=== PATIENT | female | born 1965 | race Caucasian/White ===

== ENCOUNTER 2017-06-25 03:22 | Inpatient (IN) | payer OTHER ==
[~2017-06-25 03:22] MED LIST: BUPR100CR PO; LISI20TA PO; NAPR250T4 PO; OMEP20TA93 PO
[2017-06-25] MEDS ORDERED: NALOXONE HCL 0.4 MG/ML AMP IV PUSH PRN (03:30)
[2017-06-25] MEDS ORDERED: SODIUM CHLORIDE 0.9% FLUSH 10 ML FLUSH IV FLUSH PRN (03:30)
[2017-06-25 10:07] VITALS: BP 136/80; PULSE 68; RESP 20; TEMP 98.5; O2SAT 97
[2017-06-25] MEDS: metroNIDAZOLE 500 MG INJ 100 ML IV SCH ×2 (10:28→18:05)
[2017-06-25] MEDS: SODIUM CHLOR 0.9% 1000 ML INJ 1,000 ML IV SCH ×3 (10:28→23:19)
[2017-06-25] MEDS: SODIUM CHLORIDE 0.9% FLUSH 10 ML FLUSH IV FLUSH SCH ×2 (10:29→21:45)
[2017-06-25] MEDS: MORPHINE SULFATE 4 MG/ML INJ IV PUSH PRN ×2 (10:30→17:15)
[2017-06-25] MEDS: ONDANSETRON HCL 4 MG/2 ML VIAL IVP PRN ×2 (10:38→17:15)
[2017-06-25 11:37] VITALS: BP 128/72; PULSE 71; RESP 20; TEMP 97.6; O2SAT 96
[2017-06-25] MEDS: MAGNESIUM SULFATE 1 GM PREMIX 100 ML IV SCH ×2 (14:25→15:20)
[2017-06-25] MEDS: HEPARIN SODIUM - SQ 10,000 UNITS/ML VIAL SQ SCH ×2 (14:25→21:45)
[2017-06-25 16:14] VITALS: BP 119/71; PULSE 66; RESP 20; TEMP 98.4; O2SAT 96
[2017-06-25] MEDS: CIPROFLOXACIN 400 MG PREMIX 200 ML IV SCH (16:16)
[2017-06-25 16:39] VITALS: PULSE 72
--- NOTE | 2017-06-25 18:36 | HHI.HP ---
[facility] No Primary Care Physician Admission Diagnosis Diagnoses: (1) Diverticulitis large intestine Chief Complaint: Abdominal pain Travel History International Travel<30 Days: No Contact w/Intl Traveler <30 Da: No Traveled to Known Affected Are: No History of Present Illness 51-year-old female with a history of hypertension, prior history of diverticulitis presented to the ED last night for evaluation of 2 day history of abdominal pain mostly located to the right lower quadrant rated 8/10 in intensity without any associated nausea and vomiting. The pain is described as cramping and dull. CT abdomen and ED revealed acute diverticulitis. Patient reports a prior history of diverticulitis about 2 years ago. At that time she was hospitalized for 4 days and was treated with IV antibiotics. Currently during my exam, patient reported nausea without any emesis. She denies any shortness of breath or chest pain. She has no GI bleed. Review of Systems Except as stated in HPI: all other systems reviewed are Neg Past Family Social History Past Medical History Hypertension GERD Past Surgical History Hysterectomy Appendectomy Reported Medications Wellbutrin SR 12 HR (Bupropion HCl) 100 Mg Tab 100 Mg PO Q12HR Omeprazole 20 Mg Tab 20 Mg PO DAILY Lisinopril-Hctz 20-12.5 Mg Tab 1 Tab PO DAILY Naproxen 250 Mg Tab 250 Mg PO BID Allergies: Coded Allergies: No Known Allergies (Unverified , 06/25/17) Family History Family history positive for lung cancer Social History Alcohol Use: No Tobacco Use: Yes Substance Use: No Physical Exam Vital Signs Vital Signs Date Time Temp Pulse Resp B/P (MAP) Pulse Ox O2 Delivery O2 Flow Rate FiO2 06/25/17 16:39 72 06/25/17 16:14 98.4 66 20 119/71 (87) 96 06/25/17 11:37 97.6 71 20 128/72 (90) 96 06/25/17 10:07 98.5 68 20 136/80 (98) 97 Physical Exam GENERAL: This is a well-nourished, well-developed patient, in no apparent distress. SKIN: No rashes, ecchymoses or lesions. Cool and dry. HEAD: Atraumatic. Normocephalic. No temporal or scalp tenderness. EYES: Pupils equal round and reactive. Extraocular motions intact. No scleral icterus. No injection or drainage. ENT: Nose without bleeding, purulent drainage or septal hematoma. Throat without erythema, tonsillar hypertrophy or exudate. Uvula midline. Airway patent. NECK: Trachea midline. No JVD or lymphadenopathy. Supple, nontender, no meningeal signs. CARDIOVASCULAR: Regular rate and rhythm without murmurs, gallops, or rubs. RESPIRATORY: Clear to auscultation. Breath sounds equal bilaterally. No wheezes , rales, or rhonchi. GASTROINTESTINAL: Abdomen soft, mildly tender, nondistended. No hepato- splenomegaly, or palpable masses. No guarding. MUSCULOSKELETAL: Extremities without clubbing, cyanosis, or edema. No joint tenderness, effusion, or edema noted. No calf tenderness. Negative Homans sign bilaterally. NEUROLOGICAL: Awake and alert. Cranial nerves II through XII intact. Motor and sensory grossly within normal limits. Five out of 5 muscle strength in all muscle groups. Normal speech. Septic Shock Reassessment Septic shock perfusion: reassessment completed Caprini VTE Risk Assessment Caprini VTE Risk Assessment: No/Low Risk (score <= 1) Caprini Risk Assessment Model Point Value = 1 Point Value = 2 Point Value = 3 Point Value = 5 Age 41-60 Minor surgery BMI > 25 kg/m2 Swollen legs Varicose veins or History of unexplained or recurrent spontaneous Oral contraceptives or hormone replacement Sepsis (< 1 month) Serious lung disease, including pneumonia (< 1 month) Abnormal pulmonary function Acute myocardial infarction Congestive heart failure (< 1 month) History of inflammatory bowel disease Medical patient at bed rest Age 61-74 Arthroscopic surgery Major open surgery (> 45 min) Laparoscopic surgery (> 45 min) Malignancy Confined to bed (> 72 hours) Immobilizing plaster cast Central venous access Age >= 75 History of VTE Family history of VTE Factor V Leiden Prothrombin [id number] Lupus anticoagulant Anticardiolipin antibodies Elevated serum homocysteine Heparin-induced thrombocytopenia Other congenital or acquired thrombophilia Stroke (< 1 month) Elective arthroplasty Hip, pelvis, or leg fracture Acute spinal cord injury (< 1 month) Prophylaxis Regimen Total Risk Factor Score Risk Level Prophylaxis Regimen 0-1 Low Early ambulation 2 Moderate Order ONE of the following: *Sequential Compression Device (SCD) *Heparin 5000 units SQ BID 3-4 Higher Order ONE of the following medications: *Heparin 5000 units SQ TID *Enoxaparin/Lovenox 40 mg SQ daily (WT < 150 kg, CrCl > 30 mL/min) *Enoxaparin/Lovenox 30 mg SQ daily (WT < 150 kg, CrCl > 10-29 mL/min) *Enoxaparin/Lovenox 30 mg SQ BID (WT < 150 kg, CrCl > 30 mL/min) AND/OR *Sequential Compression Device (SCD) 5 or more Highest Order ONE of the following medications: *Heparin 5000 units SQ TID (Preferred with Epidurals) *Enoxaparin/Lovenox 40 mg SQ daily (WT < 150 kg, CrCl > 30 mL/min) *Enoxaparin/Lovenox 30 mg SQ daily (WT < 150 kg, CrCl > 10-29 mL/min) *Enoxaparin/Lovenox 30 mg SQ BID (WT < 150 kg, CrCl > 30 mL/min) AND *Sequential Compression Device (SCD) Assessment and Plan Problem List: (1) Diverticulitis large intestine ICD Code: K57.32 - Diverticulitis of large intestine without perforation or abscess without bleeding Assessment and Plan 51-year-old female with Acute diverticulitis of large intestine CT abdomen noted and reviewed by me with finding of acute diverticulitis Currently on Flagyl and Cipro Continue with nothing by mouth, IV fluid resuscitation and parenteral pain management Patient is requesting no narcotics Leukocytosis Above infectious process Continue with current IV antibiotics Monitor CBC Hypertension Resume outpatient medications History of tobacco abuse Tobacco cessation counselling Continue with Wellbutrin DVT prophylaxis: Bilateral SCDs GI prophylaxis: PPI Code Status Full code Discussed Condition With Patient Physician Certification 2 Midnight Certification Type: Admission for Inpatient Services Order for Inpatient Services The services are ordered in accordance with Medicare regulations or non- Medicare payer requirements, as applicable. In the case of services not specified as inpatient-only, they are appropriately provided as inpatient services in accordance with the 2-midnight benchmark. Estimated LOS (days): 2 days is the estimated time the patient will need to remain in the hospital, assuming treatment plan goals are met and no additional complications. Post-Hospital Plan: Not yet determined Min Castellano MD Jun 25, 2017 18:36
[2017-06-25] MEDS ORDERED: ACETAMINOPHEN 325 MG TAB PO PRN (18:45)
[2017-06-25] MEDS ORDERED: PANTOPRAZOLE SODIUM 40 MG VIAL IV PUSH SCH (19:00)
[2017-06-25] MEDS ORDERED: KETOROLAC TROMETHAMINE 30 MG/ML (IVP) VIAL IV PUSH PRN (19:00)
[2017-06-25 20:30] VITALS: BP 134/65; PULSE 90; RESP 16; TEMP 98; O2SAT 95
[2017-06-25] MEDS: TEMAZEPAM 15 MG CAP PO PRN (21:46)
[2017-06-25] MEDS: buPROPion HCL 100 MG SUSTAINED RELEASE TAB PO SCH (22:17)
[2017-06-25] MEDS: ONDANSETRON HCL 4 MG/2 ML VIAL IV PUSH PRN (23:19)
[2017-06-26] VITALS (9 sets, daily range): BP systolic 107–165; BP diastolic 53–86; PULSE 65–77; RESP 16–22; TEMP 97.5–98.6; O2SAT 73–97
[2017-06-26] MEDS: metroNIDAZOLE 500 MG INJ 100 ML IV SCH ×3 (02:00→17:35)
[2017-06-26] MEDS: CIPROFLOXACIN 400 MG PREMIX 200 ML IV SCH ×2 (02:00→14:11)
[2017-06-26] MEDS: HEPARIN SODIUM - SQ 10,000 UNITS/ML VIAL SQ SCH ×3 (05:13→20:51)
[2017-06-26] MEDS: KETOROLAC TROMETHAMINE 30 MG/ML (IVP) VIAL IV PUSH PRN ×3 (05:13→18:45)
[2017-06-26] MEDS: SODIUM CHLORIDE 0.9% FLUSH 10 ML FLUSH IV FLUSH SCH ×2 (08:45→20:51)
[2017-06-26] MEDS: HYDROCHLOROTHIAZIDE 12.5 MG CAP PO SCH (08:55)
[2017-06-26] MEDS: LISINOPRIL 20 MG TAB PO SCH (08:55)
[2017-06-26] MEDS: buPROPion HCL 100 MG SUSTAINED RELEASE TAB PO SCH ×2 (08:55→20:51)
[2017-06-26] MEDS: DOCUSATE SODIUM 50 MG/SENNA 8.6 MG TAB PO PRN ×2 (08:55→20:51)
[2017-06-26] MEDS: SODIUM CHLOR 0.9% 1000 ML INJ 1,000 ML IV SCH ×2 (08:58→20:51)
[2017-06-26] MEDS ORDERED: NON-FORMULARY DRUG (Lisinopril-Hctz 1 TAB) PO SCH (09:00)
[2017-06-26] MEDS ORDERED: PNEUMOCOCCAL POLYVALENT INJ 25 MCG/0.5 ML SYR IM ONE (10:00)
[2017-06-26] MEDS ORDERED: INFLUENZA VIRUS VACCINE (QUADRIVALENT) 0.5 ML SYR IM ONE (10:00)
[2017-06-26 10:23] LABS: AUTOMATED NEUTROPHIL # 9.4 TH/MM3 (1.8-7.7); BASOPHIL % 0.3 % (0.0-2.0); EOSINOPHIL # 0.1 TH/MM3 (0-0.4); EOSINOPHIL % 0.8 % (0.0-4.0); HEMATOCRIT 36.9 % (35.0-46.0); HEMOGLOBIN 12.4 GM/DL (11.6-15.3); LYMPH % 18.4 % (9.0-44.0); LYMPHOCYTE # 2.3 TH/MM3 (1.0-4.8); MEAN CELL VOLUME 91.4 FL (80.0-100.0); MEAN CORPUSCULAR HEMOGLOBIN 30.6 PG (27.0-34.0); MEAN CORPUSCULAR HGB CONC 33.5 % (32.0-36.0); MEAN PLATELET VOLUME 9.1 FL (7.0-11.0); MONO % 5.9 % (0.0-8.0); MONOCYTE # 0.8 TH/MM3 (0-0.9); NEUT % 74.6 % (16.0-70.0); PLATELET COUNT 256 TH/MM3 (150-450); RED BLOOD COUNT 4.03 MIL/MM3 (4.00-5.30); RED CELL DISTRIBUTION WIDTH 14.5 % (11.6-17.2); WHITE BLOOD COUNT 12.7 TH/MM3 (4.0-11.0)
[2017-06-26 10:52] LABS: CALCIUM 8.8 MG/DL (8.5-10.1); CREATININE 1.14 MG/DL (0.50-1.00)
--- NOTE | 2017-06-26 12:36 | HHI.PR ---
Subjective Remarks Patient reports she is feeling slightly better in terms of nausea. Still having some breakthrough pain. She is requesting medications for rectal pain. She is cognizant of her history of opiate abuse and states she would only use the medication if it is absolutely needed. Objective Vitals Vital Signs Date Time Temp Pulse Resp B/P (MAP) Pulse Ox O2 Delivery O2 Flow Rate FiO2 06/26/17 11:38 98.3 72 21 158/74 (102) 95 06/26/17 09:05 65 06/26/17 08:17 98.3 73 20 165/86 (112) 73 06/26/17 03:58 98.3 77 16 118/60 (79) 96 06/26/17 02:33 70 06/26/17 00:00 98.6 69 16 113/55 (74) 95 06/25/17 20:30 98.0 90 16 134/65 (88) 95 06/25/17 16:39 72 06/25/17 16:14 98.4 66 20 119/71 (87) 96 I/O 06/25/17 06/25/17 06/25/17 06/26/17 06/26/17 06/26/17 07:00 15:00 23:00 07:00 15:00 23:00 Intake Total 100 ml 1256 ml Balance 100 ml 1256 ml Intake IV Total 100 ml 1256 ml # Voids 3 Result Diagram: 06/26/17 0935 06/26/17 0935 Objective Remarks GENERAL: This is a well-nourished, well-developed patient, in no apparent distress. CARDIOVASCULAR: Normal rate and regular rhythm without murmurs, gallops, or rubs. RESPIRATORY: Good respiratory efforts. Breath sounds equal and clear to auscultation bilaterally. GASTROINTESTINAL: Abdomen soft, tender to palpation in the left lower quadrant. No rebound tenderness MUSCULOSKELETAL: Extremities without cyanosis, or edema. NEURO: Alert & Oriented x4 to person, place, time, situation. Moves all ext x4 PSYCH: Appropriate mood and affect. A/P Problem List: (1) Diverticulitis large intestine ICD Code: K57.32 - Diverticulitis of large intestine without perforation or abscess without bleeding Assessment and Plan 51-year-old female admitted with acute diverticulitis. Acute diverticulitis of large intestine CT abdomen noted as above with finding of acute diverticulitis Currently on IV Flagyl and Cipro Continue with nothing by mouth, IV fluid resuscitation and parenteral pain management Continue Toradol for pain management. Low dose IV morphine for severe/ breakthrough pain only. Patient reports history of opiate addiction and states she will avoid using opiates unless absolutely necessary. She does want to have it available just in case. Leukocytosis Above infectious process Continue with current IV antibiotics Monitor CBC Hypertension Continue outpatient medications History of tobacco abuse Tobacco cessation counselling Continue with Wellbutrin DVT prophylaxis: Bilateral SCDs GI prophylaxis: H2 diana Irena Cain MD Jun 26, 2017 12:36
[2017-06-26] MEDS ORDERED: MORPHINE SULFATE 2 MG/ML INJ IV PUSH PRN (12:45)
[2017-06-26] MEDS: FAMOTIDINE 20 MG TAB PO SCH (20:51)
[2017-06-26] MEDS: TEMAZEPAM 15 MG CAP PO PRN (20:54)
[2017-06-26] MEDS: ONDANSETRON HCL 4 MG/2 ML VIAL IV PUSH PRN (22:12)
[2017-06-27] MEDS: metroNIDAZOLE 500 MG INJ 100 ML IV SCH ×3 (03:19→17:41)
[2017-06-27] MEDS: CIPROFLOXACIN 400 MG PREMIX 200 ML IV SCH ×2 (03:19→15:01)
[2017-06-27 04:08] VITALS: BP 125/58; PULSE 65; RESP 19; TEMP 98.1; O2SAT 96
[2017-06-27] MEDS: ONDANSETRON HCL 4 MG/2 ML VIAL IV PUSH PRN ×2 (05:59→14:58)
[2017-06-27] MEDS: HEPARIN SODIUM - SQ 10,000 UNITS/ML VIAL SQ SCH ×3 (05:59→20:46)
[2017-06-27] MEDS: SODIUM CHLOR 0.9% 1000 ML INJ 1,000 ML IV SCH ×2 (05:59→15:03)
[2017-06-27 08:34] VITALS: BP 133/69; PULSE 69; RESP 20; TEMP 98; O2SAT 97
[2017-06-27] MEDS: SODIUM CHLORIDE 0.9% FLUSH 10 ML FLUSH IV FLUSH SCH ×2 (08:56→20:45)
[2017-06-27] MEDS: HYDROCHLOROTHIAZIDE 12.5 MG CAP PO SCH (08:57)
[2017-06-27] MEDS: buPROPion HCL 100 MG SUSTAINED RELEASE TAB PO SCH ×2 (08:57→20:45)
[2017-06-27] MEDS: FAMOTIDINE 20 MG TAB PO SCH ×2 (08:57→20:45)
[2017-06-27] MEDS: KETOROLAC TROMETHAMINE 30 MG/ML (IVP) VIAL IV PUSH PRN ×3 (08:58→22:22)
[2017-06-27] MEDS: LISINOPRIL 20 MG TAB PO SCH (08:58)
[2017-06-27] MEDS: DOCUSATE SODIUM 50 MG/SENNA 8.6 MG TAB PO PRN (10:33)
[2017-06-27 11:05] LABS: HEMATOCRIT 36.3 % (35.0-46.0); HEMOGLOBIN 12.4 GM/DL (11.6-15.3); MEAN CELL VOLUME 90.4 FL (80.0-100.0); MEAN CORPUSCULAR HEMOGLOBIN 30.8 PG (27.0-34.0); MEAN CORPUSCULAR HGB CONC 34.1 % (32.0-36.0); PLATELET COUNT 266 TH/MM3 (150-450); RED BLOOD COUNT 4.01 MIL/MM3 (4.00-5.30); RED CELL DISTRIBUTION WIDTH 14.4 % (11.6-17.2)
[2017-06-27 11:36] LABS: BICARBONATE 26.4 MEQ/L (21.0-32.0); CALCIUM 8.8 MG/DL (8.5-10.1); CREATININE 1.11 MG/DL (0.50-1.00)
[2017-06-27 12:00] VITALS: BP 152/75; PULSE 69; RESP 20; TEMP 98.6; O2SAT 97
--- NOTE | 2017-06-27 13:16 | HHI.PR ---
Subjective Remarks Patient reports she is feeling better today. She is having much less pain. Had nausea earlier this morning but it resolved. She would like to advance her diet. Objective Vitals Vital Signs Date Time Temp Pulse Resp B/P (MAP) Pulse Ox O2 Delivery O2 Flow Rate FiO2 06/27/17 08:34 98.0 69 20 133/69 (90) 97 06/27/17 04:08 98.1 65 19 125/58 (80) 96 06/26/17 23:55 97.5 69 19 107/53 (71) 97 06/26/17 20:00 98.1 70 20 127/79 (95) 95 06/26/17 15:59 98.3 71 22 141/79 (99) 97 I/O 06/26/17 06/26/17 06/26/17 06/27/17 06/27/17 06/27/17 07:00 15:00 23:00 07:00 15:00 23:00 Intake Total 1256 ml 700 ml 1366 ml 1300 ml Balance 1256 ml 700 ml 1366 ml 1300 ml Intake Oral 600 ml IV Total 1256 ml 100 ml 1366 ml 1300 ml # Voids 3 5 9 # Bowel Movements 0 Result Diagram: 06/27/17 1033 06/27/17 1033 Objective Remarks GENERAL: This is a well-nourished, well-developed patient, in no apparent distress. CARDIOVASCULAR: Normal rate and regular rhythm without murmurs, gallops, or rubs. RESPIRATORY: Good respiratory efforts. Breath sounds equal and clear to auscultation bilaterally. GASTROINTESTINAL: Abdomen soft, mild tenderness to palpation in the left lower quadrant. No rebound tenderness MUSCULOSKELETAL: Extremities without cyanosis, or edema. NEURO: Alert & Oriented x4 to person, place, time, situation. Moves all ext x4 PSYCH: Appropriate mood and affect. A/P Problem List: (1) Diverticulitis large intestine ICD Code: K57.32 - Diverticulitis of large intestine without perforation or abscess without bleeding Assessment and Plan 51-year-old female admitted with acute diverticulitis. Acute diverticulitis of large intestine CT abdomen noted as above with finding of acute diverticulitis Currently on IV Flagyl and Cipro for 1 more day and plan to transition to oral tomorrow. Advance diet. Continue Toradol for pain management. Discontinue morphine. Leukocytosis Above infectious process Continue with current IV antibiotics for 1 more day. Monitor CBC Hypertension Continue outpatient medications History of tobacco abuse Tobacco cessation counselling Continue with Wellbutrin DVT prophylaxis: Bilateral SCDs GI prophylaxis: H2 diana Discharge Planning Continue IV antibiotics for 1 more day with plan to discharge tomorrow if she continues to improve. Irena Cain MD Jun 27, 2017 13:16
[2017-06-27 16:00] VITALS: BP 129/61; PULSE 74; RESP 20; TEMP 98.1; O2SAT 98
[2017-06-27 20:00] VITALS: BP 168/79; PULSE 75; RESP 20; TEMP 97.3; O2SAT 97
[2017-06-27] MEDS: TEMAZEPAM 15 MG CAP PO PRN (22:21)
[2017-06-28] VITALS: BP 155/83; PULSE 73; RESP 20; TEMP 98.3; O2SAT 95
[2017-06-28] MEDS: SODIUM CHLOR 0.9% 1000 ML INJ 1,000 ML IV SCH ×2 (02:28→11:30)
[2017-06-28] MEDS: metroNIDAZOLE 500 MG INJ 100 ML IV SCH ×2 (02:28→10:29)
[2017-06-28] MEDS: CIPROFLOXACIN 400 MG PREMIX 200 ML IV SCH (02:30)
[2017-06-28 04:00] VITALS: BP 131/64; PULSE 66; RESP 20; TEMP 97.9; O2SAT 95
[2017-06-28] MEDS: HEPARIN SODIUM - SQ 10,000 UNITS/ML VIAL SQ SCH (06:03)
[2017-06-28 08:44] VITALS: BP 124/72; PULSE 64; RESP 20; TEMP 98.1; O2SAT 97
[2017-06-28] MEDS: SODIUM CHLORIDE 0.9% FLUSH 10 ML FLUSH IV FLUSH SCH (09:00)
[2017-06-28] MEDS: buPROPion HCL 100 MG SUSTAINED RELEASE TAB PO SCH (10:27)
[2017-06-28] MEDS: HYDROCHLOROTHIAZIDE 12.5 MG CAP PO SCH (10:28)
[2017-06-28] MEDS: LISINOPRIL 20 MG TAB PO SCH (10:28)
[2017-06-28] MEDS: FAMOTIDINE 20 MG TAB PO SCH (10:28)
[2017-06-28] MEDS ORDERED: METR-1 PO (11:24)
[2017-06-28] MEDS ORDERED: CIPR500T2 PO (11:24)
[2017-06-28] MEDS ORDERED: FAMO40TA PO (11:26)
--- NOTE | 2017-06-28 11:26 | HHI.DS ---
Discharge Summary Admission Date Jun 26, 2017 at 12:36 Discharge Date: Jun 28, 2017 Admitting Diagnosis (1) Diverticulitis large intestine ICD Code: K57.32 - Diverticulitis of large intestine without perforation or abscess without bleeding Procedures None Brief History - From Admission History of present illness from the admitting physician 51-year-old female with a history of hypertension, prior history of diverticulitis presented to the ED last night for evaluation of 2 day history of abdominal pain mostly located to the right lower quadrant rated 8/10 in intensity without any associated nausea and vomiting. The pain is described as cramping and dull. CT abdomen and ED revealed acute diverticulitis. Patient reports a prior history of diverticulitis about 2 years ago. At that time she was hospitalized for 4 days and was treated with IV antibiotics. Currently during my exam, patient reported nausea without any emesis. She denies any shortness of breath or chest pain. She has no GI bleed. CBC/BMP: 06/27/17 1033 06/27/17 1033 Significant Findings Laboratory Tests Test 06/26/17 09:35 06/27/17 10:33 White Blood Count 12.7 TH/MM3 (4.0-11.0) 12.0 TH/MM3 (4.0-11.0) Neutrophils (%) (Auto) 74.6 % (16.0-70.0) Neutrophils # (Auto) 9.4 TH/MM3 (1.8-7.7) Creatinine 1.14 MG/DL (0.50-1.00) 1.11 MG/DL (0.50-1.00) Random Glucose 113 MG/DL (74-106) Estimat Glomerular Filtration Rate 50 ML/MIN (>89) 51 ML/MIN (>89) Chloride Level 109 MEQ/L (98-107) Imaging Abdominal CT revealed Diverticula throughout the colon with inflammatory change around the proximal descending colon consistent with diverticulitis. PE at Discharge GENERAL: This is a well-nourished, well-developed patient, in no apparent distress. CARDIOVASCULAR: Normal rate and regular rhythm without murmurs, gallops, or rubs. RESPIRATORY: Good respiratory efforts. Breath sounds equal and clear to auscultation bilaterally. GASTROINTESTINAL: Abdomen soft, mild tenderness to palpation in the left lower quadrant. No rebound tenderness MUSCULOSKELETAL: Extremities without cyanosis, or edema. NEURO: Alert & Oriented x4 to person, place, time, situation. Moves all ext x4 PSYCH: Appropriate mood and affect. Pt update on day of discharge Patient reports she is feeling much better. Abdominal pain have subsided significantly. No nausea or vomiting. She is tolerating a diet. Hospital Course 51-year-old female admitted with acute diverticulitis. The patient was admitted and treated with IV fluid and IV antibiotics. Her condition improved. She tolerated a diet. She is discharged home in stable condition to continue on oral antibiotics to complete the course of treatment. Other conditions treated include: Hypertension Continue outpatient medications History of tobacco abuse Tobacco cessation counselling Continue with Wellbutrin Pt Condition on Discharge: Good Discharge Disposition: Discharge Home Discharge Time: <= 30 minutes Discharge Instructions DIET: Follow Instructions for: Heart Healthy Diet Activities you can perform: Regular-No Restrictions New Medications: Ciprofloxacin (Ciprofloxacin) 500 Mg Tab 500 MG PO BID for Infection, #12 TAB 0 Refills Famotidine (Famotidine) 40 Mg Tab 40 MG PO BID, #60 TAB 0 Refills Metronidazole (Flagyl) 500 Mg Tab 500 MG PO TID for Infection, #18 TAB 0 Refills Continued Medications: Bupropion HCl ER 12 HR (Wellbutrin SR 12 HR) 100 Mg Tab 100 MG PO Q12HR for Control Depression, TAB 0 Refills Lisinopril-Hctz (Lisinopril-Hctz) 20-12.5 Mg Tab 1 TAB PO DAILY for Blood Pressure Management, #30 TAB 0 Refills Discontinued Medications: Naproxen (Naproxen) 250 Mg Tab 250 MG PO BID, #60 TAB 0 Refills Omeprazole (Omeprazole) 20 Mg Tab 20 MG PO DAILY, #30 TAB 0 Refills Irena Cain MD Jun 28, 2017 11:26
--- NOTE | 2017-06-28 11:26 | HHI.DCPOC ---
Discharge Care Plan Diagnosis: (1) Diverticulitis large intestine (2) Hypertension (3) GERD (gastroesophageal reflux disease) Goals to Promote Your Health * To prevent worsening of your condition and complications * To maintain your health at the optimal level Directions to Meet Your Goals Take your medications as prescribed Follow your dietary instruction Follow activity as directed Keep your appointments as scheduled Take your immunizations and boosters as scheduled If your symptoms worsen call your PCP, if no PCP go to Urgent Care Center or Emergency Room Smoking is Dangerous to Your Health. Avoid second hand smoke Call the 24-hour hour crisis hotline for domestic abuse at Irena Cain MD Jun 28, 2017 11:26
== END 2017-06-28 11:59 | disposition home or self-care (01) | DRG 392 ==
LOC: NEDDLT 08:59 → N05A 09:09 → OBSVTOIN 06-26 12:36
PROVIDERS: ADMIT Family Medicine; ATTEND Family Medicine
DX: K57.32 Diverticulitis of large intestine without perforation or abscess without bleeding (principal); I10 Essential (primary) hypertension; K21.9 Gastro-esophageal reflux disease without esophagitis; D72.829 Elevated white blood cell count, unspecified; Z90.710 Acquired absence of both cervix and uterus; Z72.0 Tobacco use; Z23 Encounter for immunization
CPT/HCPCS: 74176; 80048; 80053; 81001; 83690; 85025; 85027; 87086; 90686; 90732; 96365; 96366; 96368; 96375; 96376; C9113; G0378; J0744; J1170; J1885; J2270; J2405; J3475; J7030; Q2038